=== PATIENT | female | born 1980 | race Two or more races ===

== ENCOUNTER → 2017-03-18 11:11 | Emergency (ER) | payer BC ==
[2017-03-18 12:46] LABS: Hematocrit 45 % (35-47); Hemoglobin 14.7 g/dl (12.0-16.0); Mean Corpuscular HGB Conc 33 g/dl (31-36); Mean Corpuscular Hemoglobin 29 pg (27-31); Mean Corpuscular Volume 87 fL (80-97); Mean Platelet Volume 9 um3 (7.4-10.4); Red Blood Count 5.13 10^6/ul (4.0-5.4); Red Cell Distribution Width 13 % (10.5-15); White Blood Count 8.9 10^3/ul (3.5-10.8)
[2017-03-18 13:00] LABS: Albumin 4.6 g/dL (3.2-5.2); BUN/Creatinine Ratio 11.4 (8-20); Calcium 9.4 mg/dL (8.6-10.3); EGFR African American 122.5 (>60); EGFR Non-African American 95.2 (>60); Globulin 3.4 g/dL (2-4); Potassium 3.6 mmol/L (3.5-5.0); Total Bilirubin 0.5 mg/dL (0.2-1.0)
[2017-03-18 13:22] VITALS: BP 122/73
--- NOTE | 2017-03-18 13:38 | ED ---
Denia Villalpando Erika, scribed for Lb Neal MD on 03/18/17 at 1229 . GI/ HPI - HPI Summary HPI Summary: Patient is a 36-year-old female presenting to the ED with a CC of intermittent rectal bleeding. She reports that she had a hard BM this morning, and noticed blood in the toilet and on the toilet paper after. She denies blood mixed in with the stool, and denies black stools. She does note slight pain with the BMs , but no rectal pain at rest. She had a second BM with no blood. However, a few hours later, patient urinated and noticed her underwear had blood on them, and noted some active bleeding from the rectum, so she decided to come to the ED. Pt denies abdominal pain and urinary symptoms. Patient reports she has had constipation in the past with slight rectal bleeding, only noted on the toilet paper, and had a rectal exam last year by her PCP which showed no hemorrhoids - PCP told her bleeding was likely due to passing hard BM. Pt had a similar episode last month, so now has a follow up appointment with Dr. Bruner scheduled for next week. LNMP 3 weeks ago. G0. Hx HTN - takes amlodipine and metoprolol. Pt does not take blood thinners. Denies PSHx abdominal surgeries. - History of Current Complaint Chief Complaint: EDRectalPain Time Seen by Provider: 03/18/17 12:13 Stated Complaint: RECTAL BLEEDING Hx Obtained From: Patient Onset/Duration: Started Hours Ago, Still Present Timing: Intermittent Severity: Mild Vaginal Bleeding Description: Bright Red Pain Intensity: 0 Associated Signs and Symptoms: Positive: Bright Red Blood w/Stool. Negative: Abdominal Pain, UTI Symptoms Aggravating Factor(s): Bowel Movement PMH/Surg Hx/FS Hx/Imm Hx Endocrine/Hematology History: Denies: Hx Diabetes Cardiovascular History: Reports: Hx Hypertension Infectious Disease History: No Infectious Disease History: Denies: Traveled Outside the [place] in Last 30 Days - Family History Known Family History: Positive: Hypertension - Social History Occupation: Employed Full-time Alcohol Use: None Hx Substance Use: No Substance Use Type: Reports: None Hx Tobacco Use: No Smoking Status (MU): Never Smoked Tobacco Review of Systems Gastrointestinal: Other - Rectal bleeding, hard stools Negative: Abdominal Pain Negative: burning, dysuria, frequency All Other Systems Reviewed And Are Negative: Yes Physical Exam Triage Information Reviewed: Yes Vital Signs On Initial Exam: Initial Vitals Temp Pulse Resp BP Pulse Ox 100 F 98 20 145/108 100 03/18/17 11:16 03/18/17 11:16 03/18/17 11:16 03/18/17 11:16 03/18/17 11:16 Vital Signs Reviewed: Yes Appearance: Positive: Well-Appearing, No Pain Distress Skin: Positive: Warm, Skin Color Reflects Adequate Perfusion, Dry Head/Face: Positive: Normal Head/Face Inspection Eyes: Positive: EOMI, ANDREW ENT: Positive: Normal ENT inspection Neck: Positive: Supple, Nontender Respiratory/Lung Sounds: Positive: Clear to Auscultation, Breath Sounds Present Cardiovascular: Positive: RRR Abdomen Description: Positive: Nontender, Soft Bowel Sounds: Positive: Present Pelvic Exam: Positive: other - Anterior non-engorged single hemorrhoid. Posterior non-engorged non-bleeding hemorrhoid. Superficial 3 mm skin break/ laceration on the right anterior perianal skin Musculoskeletal: Positive: Normal, Strength/ROM Intact Neurological: Positive: Normal, Sensory/Motor Intact, Alert, Oriented to Person Place, Time Psychiatric: Positive: Affect/Mood Appropriate Diagnostics - Vital Signs Vital Signs Temp Pulse Resp BP Pulse Ox 03/18/17 11:18 100 F 89 20 145/108 100 03/18/17 11:16 100 F 98 20 145/108 100 - Laboratory Lab Results: Lab Results 03/18/17 03/18/17 03/18/17 Range/Units 12:35 12:35 12:35 WBC 8.9 (3.5-10.8) 10^3/ul RBC 5.13 (4.0-5.4) 10^6/ul Hgb 14.7 (12.0-16.0) g/dl Hct 45 (35-47) % MCV 87 (80-97) fL MCH 29 (27-31) pg MCHC 33 (31-36) g/dl RDW 13 (10.5-15) % Plt Count 255 (150-450) 10^3/ul MPV 9 (7.4-10.4) um3 Neut % (Auto) 68.6 (38-83) % Lymph % (Auto) 23.3 L (25-47) % Cache % (Auto) 4.8 (1-9) % Eos % (Auto) 2.6 (0-6) % Baso % (Auto) 0.7 (0-2) % Absolute Neuts (auto) 6.1 (1.5-7.7) 10^3/ul Absolute Lymphs (auto) 2.1 (1.0-4.8) 10^3/ul Absolute Monos (auto) 0.4 (0-0.8) 10^3/ul Absolute Eos (auto) 0.2 (0-0.6) 10^3/ul Absolute Basos (auto) 0.1 (0-0.2) 10^3/ul Absolute Nucleated RBC 0.01 10^3/ul Nucleated RBC % 0.1 INR (Anticoag Therapy) 0.94 (0.89-1.11) APTT 34.5 (26.0-36.3) seconds Sodium 136 (133-145) mmol/L Potassium 3.6 (3.5-5.0) mmol/L Chloride 106 (101-111) mmol/L Carbon Dioxide 22 (22-32) mmol/L Anion Gap 8 (2-11) mmol/L BUN 8 (6-24) mg/dL Creatinine 0.70 (0.51-0.95) mg/dL Est GFR ( Amer) 122.5 (>60) Est GFR (Non-Af Amer) 95.2 (>60) BUN/Creatinine Ratio 11.4 (8-20) Glucose 99 (70-100) mg/dL Calcium 9.4 (8.6-10.3) mg/dL Total Bilirubin 0.50 (0.2-1.0) mg/dL AST 21 (13-39) U/L ALT 20 (7-52) U/L Alkaline Phosphatase 42 (34-104) U/L Total Protein 8.0 (6.4-8.9) g/dL Albumin 4.6 (3.2-5.2) g/dL Globulin 3.4 (2-4) g/dL Albumin/Globulin Ratio 1.4 (1-3) Result Diagrams: 03/18/17 12:35 03/18/17 12:35 Lab Statement: Any lab studies that have been ordered have been reviewed, and results considered in the medical decision making process. Re-Evaluation - Re-Evaluation First Eval Re-Evaluation Time: 13:27 Comment: Discussed results with patient and Dr. Acevedo's recommendations. GIGU Course/Dx - Course Course Of Treatment: NO CRITICAL CARE TIME Assessment/Plan: DISCUSSED RESULTS/FINDING WITH PATIENT AND DR ACEVEDO. WILL TREAT OUT PATIENT WITH METAMUCIL AND MIRALAX AND SITZ BATHS. PATIENT HAS F/U SCHEDULED WITH DR ESQUIVEL, GI, ON 03/25/17. DISCHARGE HOME STABLE. - Diagnoses Provider Diagnoses: Anal fissure, Rectal bleed, Constipation - Physician Notifications Discussed Care Of Patient With: Dr. Acevedo (GI) at 13:07 - discussed patient's history and physical. recommends metamucil and miralax +/- sitz bath with follow up from GI. Discharge - Discharge Plan Condition: Stable Disposition: HOME Patient Education Materials: Constipation (ED), Rectal Bleeding (ED), Anal Fissure (ED), High Fiber Diet (ED) Referrals: Joie Cadet MD [Primary Care Provider] - Junior Bruner MD [Medical Doctor] - Additional Instructions: FOLLOW UP WITH YOUR DOCTOR AND DOCTOR BRUNER ON 03/25/17 SCHEDULED. RETURN TO THE EMERGENCY DEPARTMENT FOR ANY WORSENING OF YOUR CONDITION OR QUESTIONS OR CONCERNS. The documentation as recorded by the Denia escobar Erika accurately reflects the service I personally performed and the decisions made by me, Lb Neal MD.
== END | disposition home or self-care (01) ==
LOC: ED 11:11
DX: K60.2 Anal fissure, unspecified (principal); K62.5 Hemorrhage of anus and rectum; K59.00 Constipation, unspecified
CPT/HCPCS: 36415; 80053; 85025; 85610; 85730; 99282

== ENCOUNTER 2018-06-09 19:58 | Emergency (ER) | payer BC, OTHER ==
[2018-06-09] MEDS ORDERED: Tetracaine 0.5% OPTH.SOL 4 ML* 1 DROP BTL BOTH EYES ONE (20:10)
[2018-06-09] MEDS ORDERED: Fluorescein Sod TOPICAL 0.6* 0.6 MG TEST OPHTHALMIC ONE (20:10)
--- NOTE | 2018-06-09 20:11 | UC ---
Eye Complaint HPI - HPI Summary HPI Summary: 38 yo female presents accompanied by with complaints of right eye irritation since this morning. She tells me that mid morning while at work she felt some itchiness to her right eye and itched it. Later in the day noticed some redness to the eye that has persisted into this evening prompting her visit to . Does endorse some issues with seasonal allergies. Denies pain, injury, recent illness, or vision changes. - History of Current Complaint Chief Complaint: UCEye Stated Complaint: EYE IRRITATION Time Seen by Provider: 06/09/18 20:10 Hx Obtained From: Patient Hx Last Menstrual Period: 06/09/18 Onset/Duration: Sudden Onset Severity Initially: Mild Severity Currently: Mild Pain Intensity: 4 Pain Scale Used: 0-10 Numeric - Allergies/Home Medications Allergies/Adverse Reactions: Allergies Allergy/AdvReac Type Severity Reaction Status Date / Time No Known Allergies Allergy Verified 06/09/18 20:06 PMH/Surg Hx/FS Hx/Imm Hx Cardiovascular History: Hypertension - Surgical History Surgical History: None - Family History Known Family History: Positive: Hypertension - Social History Occupation: Employed Full-time Lives: With Family Alcohol Use: None Substance Use Type: None Smoking Status (MU): Never Smoked Tobacco Review of Systems Constitutional: Negative Skin: Negative Eyes: Eye Redness ENT: Negative Respiratory: Negative Cardiovascular: Negative Neurological: Negative Psychological: Negative All Other Systems Reviewed And Are Negative: Yes Physical Exam - Summary Physical Exam Summary: GENERAL: NAD. WDWN. No pain distress. SKIN: No rashes, sores, lesions, or open wounds. HEENT: Head: AT/NC Eyes: EOM intact. Conjunctiva clear without inflammation or discharge. RIGHT EYE: At 8 o'clock there is a clear ?cyst vs ?fat deposit with surrounding scleral injection. Left eye: WNL. Ears: Hearing grossly normal. TMs intact, no bulging, erythema, or edema. Nose: Nasal mucosa pink and moist. NTTP maxillary and frontal sinus. Throat: Posterior oropharynx without exudates, erythema, or tonsillar enlargement. Uvula midline. NECK: Supple. Nontender. No lymphadenopathy. CHEST: No accessory muscle use. Breathing comfortably and in no distress. CV: Pulses intact. Brisk cap refill. NEURO: Alert. CN II-XII grossly intact. PSYCH: Age appropriate behavior. Triage Information Reviewed: Yes Vital Signs: Initial Vital Signs Temp 98.4 F 06/09/18 20:00 Pulse 98 06/09/18 20:00 Resp 16 06/09/18 20:00 BP 159/113 06/09/18 20:00 Pulse Ox 100 06/09/18 20:00 Vital Signs Reviewed: Yes Eye Complaint Course/Dx - Course Course Of Treatment: Suspect pinguecula. No fluorescein dye exam could be performed due to towel inspector back order of the item. She was provided with saline eye drops to use [id number] and given a referral to Dr. Dyer to f/u with tomorrow. - Differential Dx/Diagnosis Provider Diagnoses: pinguecula right eye Discharge - Sign-Out/Discharge Documenting (check all that apply): Patient Departure - Discharge Plan Condition: Stable Disposition: HOME Patient Education Materials: Svetlana (ED) Referrals: Joie Cadet MD [Primary Care Provider] - Los Dyer MD [Medical Doctor] - 1 Day Additional Instructions: If you develop a fever, shortness of breath, chest pain, new or worsening symptoms - please call your PCP or go to the ED. Your blood pressure was high at todays visit. Please see your primary provider within 4 weeks for recheck and re-evaluation. 1) Please call Dr. Dyer in the morning and tell them that you were seen in our clinic and advised to schedule an appointment for today (06/10) - Billing Disposition and Condition Condition: STABLE Disposition: Home
[2018-06-09] MEDS ORDERED: Eye Irrigation Solution 30 ML BOTTLE RIGHT EYE ONE (20:25)
[2018-06-09 20:45] VITALS: BP 170/102
== END 2018-06-09 20:40 | disposition home or self-care (01) ==
LOC: UCEAST 19:58
DX: H11.151 Pinguecula, right eye (principal)
CPT/HCPCS: 99212; G0463

== ENCOUNTER 2019-05-10 07:47 | Emergency (ER) | payer BC, OTHER ==
[2019-05-10 07:59] VITALS: BP 140/89
--- NOTE | 2019-05-10 08:09 | UC ---
Lower Extremity/Ankle HPI - HPI Summary HPI Summary: Week or so ago she dropped a laptop on her left foot. He was starting to feel better and she went hiking yesterday and it swelled up. She has point tenderness on the dorsum of her distal right foot. - History of Current Complaint Chief Complaint: UCLowerExtremity Stated Complaint: FOOT INJURY Time Seen by Provider: 05/10/19 08:02 Hx Obtained From: Patient Hx Last Menstrual Period: 05/05/19 Onset/Duration: Sudden Onset, Lasting Days Severity Initially: Mild Severity Currently: Mild Pain Intensity: 0 Aggravating Factor(s): Other - Touch Alleviating Factor(s): Rest Able to Bear Weight: Yes - Allergies/Home Medications Allergies/Adverse Reactions: Allergies Allergy/AdvReac Type Severity Reaction Status Date / Time adhesive tape Allergy Intermediate Rash Verified 05/10/19 07:59 Home Medications: Home Medications Omeprazole 20 mg PO DAILY WITH MEAL 05/10/19 [History Confirmed 05/10/19] PMH/Surg Hx/FS Hx/Imm Hx Previously Healthy: Yes - Surgical History Surgical History: None - Family History Known Family History: Positive: Hypertension - Social History Alcohol Use: Rare Substance Use Type: None Smoking Status (MU): Never Smoked Tobacco Review of Systems All Other Systems Reviewed And Are Negative: Yes Motor: Positive: Negative Neurovascular: Positive: Negative Musculoskeletal: Positive: Negative Neurological: Positive: Negative Physical Exam - Summary Physical Exam Summary: She is nontoxic in appearance with stable vital signs. Triage Information Reviewed: Yes Appearance: Well-Appearing Vital Signs: Initial Vital Signs Temp 99 F 05/10/19 07:53 Pulse 92 05/10/19 07:53 Resp 18 05/10/19 07:53 BP 140/89 05/10/19 07:53 Pulse Ox 100 05/10/19 07:53 Musculoskeletal Exam: Normal, Other - She is mildly tender over her first and second metatarsals dorsally Neurological Exam: Normal Skin Exam: Normal Diagnostics - Radiology Right Foot Radiology Interpretation Completed By: Radiologist Summary of Radiographic Findings: Possible fracture in the distal end of the distal phalanx. Lower Extremity Course/Dx - Course Course Of Treatment: X-ray was negative in the area where she is tender. He did mention a possible fracture elsewhere but she is not tender there. I think this represents contusion. - Differential Dx/Diagnosis Provider Diagnosis: Foot contusion Discharge - Sign-Out/Discharge Documenting (check all that apply): Patient Departure All imaging exams completed and their final reports reviewed: Yes - Discharge Plan Condition: Stable Disposition: HOME Patient Education Materials: Foot Contusion (ED) Referrals: Joie Cadet MD [Primary Care Provider] - - Billing Disposition and Condition Condition: STABLE Disposition: Home
== END 2019-05-10 08:45 | disposition home or self-care (01) ==
LOC: UCEAST 07:47
DX: S90.31XA Contusion of right foot, initial encounter (principal); W22.8XXA Striking against or struck by other objects, initial encounter; Y92.9 Unspecified place or not applicable
CPT/HCPCS: 99211; G0463